=== PATIENT | female | born 1980 | race American Indian/Alaskan Native ===

== ENCOUNTER 2017-04-24 12:36 | Emergency (ER) | payer SELFPAY ==
[2017-04-24] MEDS ORDERED: NORCO 5/325 PO ONE (14:17)
[2017-04-24] MEDS ORDERED: BOOSTRIX IM ONE (14:17)
[2017-04-24] MEDS ORDERED: TRIPLE ANTIBIOTIC TP ONE (14:17)
[2017-04-24] MEDS ORDERED: MOTRIN PO ONE (14:17)
[2017-04-24] MEDS ORDERED: XYLOCAINE 2% INFILTRATI ONE (14:17)
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
[2017-04-24 16:16] VITALS: BP 149/88
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
== END 2017-04-24 16:47 | disposition home or self-care (01) ==
LOC: ED 12:36
DX: S61.212A Laceration without foreign body of right middle finger without damage to nail, initial encounter (principal); Y08.89XA Assault by other specified means, initial encounter; Y93.89 Activity, other specified; Y92.89 Other specified places as the place of occurrence of the external cause; Y99.8 Other external cause status
CPT/HCPCS: 90471; 90715; 99284; A6250

== ENCOUNTER 2017-05-05 10:34 | Emergency (ER) | payer SELFPAY ==
[2017-05-05 11:03] VITALS: BP 143/96
--- NOTE | 2017-05-05 11:20 | Emergency Department Report ---
Suture/Staple Removal - HPI Chief Complaint: Laceration/Recheck/Suture Stated Complaint: STITCHES REMOVAL Time Seen by Provider: 05/05/17 11:14 When Sutures or [place] Placed: 11-14 Days Ago Wound Location: R middle finger ED Review of Systems ROS: Stated complaint: STITCHES REMOVAL Other details as noted in HPI Comment: All other systems reviewed and negative Constitutional: denies: chills, fever Gastrointestinal: denies: nausea, vomiting Musculoskeletal: denies: joint swelling Skin: change in color (pt states her finger has been red since sututures placed ), other (brown drainage from finger) ED Past Medical Hx - Past Medical History Previous Medical History?: Yes Hx Diabetes: Yes (Borderline) - Surgical History Past Surgical History?: Yes Hx Cholecystectomy: Yes Additional Surgical History: Breast Reduction - Social History Smoking Status: Never Smoker Substance Use Type: Alcohol - Medications Home Medications: Home Medications Medication Instructions Recorded Confirmed Last Taken Type Bacitracin Zinc Oint [Antibiotic 1 applicatio TP BID #1 oint...g. 04/24/17 Unknown Rx Oint] Cephalexin [Keflex] 500 mg PO Q6HR #40 capsule 05/05/17 Unknown Rx Sulfamethoxazole/Trimethoprim 1 each PO BID #20 tablet 05/05/17 Unknown Rx [Bactrim DS TAB] Suture Removal Exam - Exam General: Vital signs noted. No distress. Alert and acting appropriately. Wound: Yes Pathologic Erythema, Yes Tenderness, Yes Drainage, Yes Wound Dehiscence, No Pus Other Systems: All other systems reviewed and are unremarkable. sutures covered by yellow skin adhesive. gauze stuck to finger. ED Course Vital Signs 05/05/17 11:00 Temperature 98.1 F Pulse Rate 78 Respiratory 18 Rate Blood Pressure 143/96 O2 Sat by Pulse 100 Oximetry - Reevaluation(s) Reevaluation #1: 05/05/17 11:57 finger had to be soaked to expose sutures. + wound dehiscence noted. sutures removed. pt tolerated removal well. Skin moist, with drainage, tenderness, erythema and foul odor. PT aware the site has become infected. PT given strict return precautions. - Procedure Description Procedures done: 8 sutures removed from R middle finger - Pulse Oximetry Interpretation Digit-Finger Initial Pulse Oximetry Readin Actions Taken: none ED Recheck MDM - Differential Diagnosis Suture/Staple Removal Critical Care Time: No Critical care attestation.: If time is entered above; I have spent that time in minutes in the direct care of this critically ill patient, excluding procedure time. ED Disposition Clinical Impression: Visit for suture removal Disposition: TO HOME OR SELFCARE Is pt being admited?: No Does the pt Need Aspirin: No Condition: Stable Instructions: Suture Removal (ED), Cellulitis (ED) Additional Instructions: Wash your finger at least twice a day with a mild antibacterial soap. Apply thin layer of antibiotic ointment. you may cover if the site might get dirty, but do leave skin open to air. Return in 2 days for wound recheck Follow up with PCP in 3-5 days and have your bp rechecked Return sooner if you develop fevers, chills, increase in redness or you are unable to move your finger Prescriptions: Cephalexin [Keflex] 500 mg PO Q6HR #40 capsule Sulfamethoxazole/Trimethoprim [Bactrim DS TAB] 1 each PO BID #20 tablet Referrals: LENARD GOODSON MD [Staff Physician] - 3-5 Days Forms: Work/School Release Form(ED) Time of Disposition: 12:04
[2017-05-05] MEDS ORDERED: TRIPLE ANTIBIOTIC TP ONE (11:58)
== END 2017-05-05 12:38 | disposition home or self-care (01) ==
LOC: ED 10:34
DX: S61.212D Laceration without foreign body of right middle finger without damage to nail, subsequent encounter (principal); X58.XXXD Exposure to other specified factors, subsequent encounter
CPT/HCPCS: A6250